=== PATIENT | male | born 1940 | race Caucasian/White ===

== ENCOUNTER 2016-10-01 14:52 | Outpatient (CLI) | payer MEDICARE ==
[2016-10-01 15:35] LABS: Hemoglobin A1c 6.8 % (4.0-6.0)
[2016-10-01 15:40] LABS: ALT (SGPT) 19 U/L (0-55); AST (SGOT) 14 U/L (5-34); Albumin 3.7 g/dL (3.4-4.8); Alkaline Phosphatase 107 U/L (40-150); Anion Gap 14 mmol/L (10-20); BUN (Urea Nitrogen) 15 mg/dL (8.4-25.7); Bilirubin, Total 0.6 mg/dL (0.2-1.2); Calc. Creatinine Clearance 0 mL/min (70-130); Calcium 8.9 mg/dL (7.8-10.44); Carbon Dioxide 23 mmol/L (23-31); Cardiac Risk 3.2 (Less than 4.5); Chloride 104 mmol/L (98-107); Cholesterol 146 mg/dL (< 200 Desired); Estimated GFR-MDRD 65; Globulin 2.5 g/dL (2.4-3.5); Glucose 178 mg/dL (83-110); HDL Cholesterol 46 mg/dL (>60 Neg Risk); LDL Cholesterol, Calculated 72 mg/dL; Potassium 4.2 mmol/L (3.5-5.1); Protein, Total 6.2 g/dL (5.8-8.1); Sodium 137 mmol/L (136-145); Triglycerides 142 mg/dL (Less than 150)
[2016-10-02 17:58] LABS: Microalbumin Urine 10.8 mg/dL (0.5-50.0)
[2016-10-02 18:09] LABS: Creatinine, Urine 135.77 mg/dL (63-166); Microalbumin/Creat Ratio 79.5 mg/g (Less than 30)
[2016-10-02 19:11] LABS: Sex Hormone Binding Globulin 98.2 nmol/L (11-78); Testosterone, Total 430.9 ng/dL (221-716)
[2016-10-02 19:13] LABS: Albumin (w/Testosterone Panel) 3.4 g/dL
== END 2016-10-01 14:53 | disposition home or self-care (01) ==
LOC: MADLAB 14:52
PROVIDERS: ATTEND Internal Medicine
DX: E78.5 Hyperlipidemia, unspecified (principal); E29.1 Testicular hypofunction; N40.1 Benign prostatic hyperplasia with lower urinary tract symptoms; E11.9 Type 2 diabetes mellitus without complications
CPT/HCPCS: 36415; 80053; 80061; 82043; 83036; 84270; 84403; G0103

== ENCOUNTER 2017-02-09 18:14 | Emergency (ER) | payer MEDICARE ==
[~2017-02-09 18:14] MED LIST: Sodium Chloride 0.9% 1,000 ML BAG ONE
[2017-02-09] MEDS ORDERED: Clindamycin/D5W 600 mg/50 ml Premix Bag ONE (19:04)
[2017-02-09] MEDS ORDERED: Ciprofloxacin Lactate/D5W 400 mg/200 ml Premix ONE (19:04)
[2017-02-09 19:36] LABS: #Basophils 0.1 thou/uL (0.0-0.2); #Eosinphils 0.3 thou/uL (0.0-0.7); #Lymphocytes 2.2 thou/uL (1.20-3.40); #Monocytes 0.7 thou/uL (0.11-0.59); #Neutrophils 7.8 thou/uL (1.40-6.50); %Basophils 1.2 % (0.0-1.0); %Eosinophils 3.1 % (0.0-10.0); %Lymphocytes 19.4 % (21.0-51.0); %Monocytes 6.5 % (0.0-10.0); %Neutrophils 69.8 % (42.0-75.0); Hemoglobin 10.7 g/dL (14.0-18.0); Mean Corpuscular HGB CONC 34.7 g/dL (32.0-36.0); Mean Corpuscular Hemoglobin 33.2 pg (27.0-31.0); Mean Corpuscular Volume 95.8 fl (80.0-94.0); Mean Platelet Volume 6.5 fL (7.4-10.4); Platelet Count 248 thou/uL (130-400); RBC Distribution Width 10.8 % (11.5-14.5); Red Blood Cell (RBC) Count 3.22 mill/uL (4.70-6.10); White Blood Cell (WBC) Count 11.2 thou/uL (4.8-10.8)
--- NOTE | 2017-02-09 19:46 | RAD ---
THREE VIEWS LEFT FOOT: Date: 02-09-17 Comparison: None. History: Foot gave out, fall, pain, trauma. FINDINGS: The bones appear demineralized. There is mild degenerative changes at the first metatarsal phalangea l joint. There is no displaced fracture or evidence of dislocation seen. IMPRESSION: No displaced fracture or dislocation noted. POS: [facility]
--- NOTE | 2017-02-09 19:50 | RAD ---
THREE VIEWS LEFT ANKLE: Date: 02-09-17 Comparison: None. History: Fell trying to stand. Leg gave out. FINDINGS: Medial and lateral soft tissue swelling is noted. Talar dome and ankle mortise appear intact. No acu te osseous abnormality. IMPRESSION: Nonspecific soft tissue swelling with no displaced fracture or dislocation. POS: [facility]
[2017-02-09 19:53] LABS: ALT (SGPT) 23 U/L (8-55); AST (SGOT) 24 U/L (5-34); Albumin 3.5 g/dL (3.4-4.8); Alkaline Phosphatase 97 U/L (40-150); Anion Gap 18 mmol/L (10-20); BUN (Urea Nitrogen) 19 mg/dL (8.4-25.7); Bilirubin, Total 0.5 mg/dL (0.2-1.2); Calc. Creatinine Clearance 0 mL/min (70-130); Calcium 8.7 mg/dL (7.8-10.44); Carbon Dioxide 18 mmol/L (23-31); Chloride 104 mmol/L (98-107); Estimated GFR-MDRD 50; Globulin 4.1 g/dL (2.4-3.5); Glucose 136 mg/dL (83-110); Potassium 3.8 mmol/L (3.5-5.1); Protein, Total 7.6 g/dL (5.8-8.1); Sodium 136 mmol/L (136-145)
[2017-02-09] MEDS ORDERED: Triple Antibiotic Oint 1 GM Packet ONE (20:02)
== END 2017-02-09 21:55 | disposition left against medical advice (07) ==
LOC: MADERS 18:14
DX: E11.621 Type 2 diabetes mellitus with foot ulcer (principal); L97.529 Non-pressure chronic ulcer of other part of left foot with unspecified severity; L03.116 Cellulitis of left lower limb; E11.65 Type 2 diabetes mellitus with hyperglycemia; I10 Essential (primary) hypertension; E78.5 Hyperlipidemia, unspecified; F17.210 Nicotine dependence, cigarettes, uncomplicated
CPT/HCPCS: 36415; 36416; 80053; 83036; 83880; 85025; 86140; 87040; 87070; 87077; 87186; 87205; 96361; 96365; 96375; J0744; J3490; J7050

== ENCOUNTER 2017-03-05 09:37 | Outpatient (CLI) | payer MEDICARE ==
[2017-03-05 10:22] LABS: Hemoglobin A1c 8.7 % (4.0-6.0)
[2017-03-05 10:24] LABS: ALT (SGPT) 17 U/L (8-55); AST (SGOT) 12 U/L (5-34); Albumin 3.8 g/dL (3.4-4.8); Alkaline Phosphatase 143 U/L (40-150); Anion Gap 14 mmol/L (10-20); BUN (Urea Nitrogen) 19 mg/dL (8.4-25.7); Bilirubin, Total 0.4 mg/dL (0.2-1.2); Calc. Creatinine Clearance 0 mL/min (70-130); Calcium 9.1 mg/dL (7.8-10.44); Carbon Dioxide 22 mmol/L (23-31); Chloride 100 mmol/L (98-107); Estimated GFR-MDRD 53; Globulin 2.9 g/dL (2.4-3.5); Glucose 280 mg/dL (83-110); Potassium 4.8 mmol/L (3.5-5.1); Protein, Total 6.7 g/dL (5.8-8.1); Sodium 131 mmol/L (136-145)
[2017-03-05 17:39] LABS: Creatinine, Urine 60.15 mg/dL (63-166); Microalbumin Urine 9.7 mg/dL (0.5-50.0); Microalbumin/Creat Ratio 161.3 mg/g (Less than 30)
== END 2017-03-05 09:38 | disposition home or self-care (01) ==
LOC: MADLAB 09:37
PROVIDERS: ATTEND Internal Medicine
DX: E11.621 Type 2 diabetes mellitus with foot ulcer (principal)
CPT/HCPCS: 36415; 80053; 82043; 83036

== ENCOUNTER 2017-07-25 13:10 | Emergency (ER) | payer MEDICARE, OTHER ==
--- NOTE | 2017-07-25 15:31 | RAD ---
3 VIEWS LEFT WRIST: Date: 07/25/17 HISTORY: Trauma and pain. FINDINGS/IMPRESSION: AP, lateral, and oblique views of left wrist obtained. Comparison made to previous exam from 05/09/13 . Images demonstrate a fracture seen in the dorsally placed radiocarpal/metacarpal plate. Again, the fr acture line is seen in the mid portion of the plate. Screws are in good position. The fourth from the distalmost screw appears to have been fractured. First carpometacarpal degenerative changes seen. Ra diographic appearance of the left wrist is stable and not significantly changed since the previous ex am from 05/09/13. No acute left wrist abnormality seen. POS: [facility]
== END 2017-07-25 15:00 | disposition home or self-care (01) ==
LOC: MADERS 13:10
DX: S69.92XA Unspecified injury of left wrist, hand and finger(s), initial encounter (principal); E11.9 Type 2 diabetes mellitus without complications; E78.5 Hyperlipidemia, unspecified; I10 Essential (primary) hypertension; F17.210 Nicotine dependence, cigarettes, uncomplicated; W01.0XXA Fall on same level from slipping, tripping and stumbling without subsequent striking against object, initial encounter

== ENCOUNTER 2018-02-14 22:15 | Emergency (ER) | payer MEDICARE, OTHER ==
[2018-02-14] MEDS ORDERED: Ibuprofen 400 MG TAB ONE (22:47)
--- NOTE | 2018-02-14 23:12 | RAD ---
LEFT WRIST THREE VIEWS: 02/14/2018 HISTORY: Injury. COMPARISON: 07/25/2017 FINDINGS: Three views of the left wrist demonstrate a previous fusion attempt at the left radiocarpal as well a s carpometacarpal joint. The dorsally positioned plate has fractured at the third carpometacarpal eder int. This was seen on the patient's previous comparison radiograph. Chronic changes are seen along much of the third metacarpal. No acute abnormality is seen. IMPRESSION: 1. No significant interval change is seen. 2. No evidence of acute left wrist abnormality is seen. 3. There is failed hardware with plates and screws noted. 4. 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 POS: [facility]
== END 2018-02-14 23:20 | disposition home or self-care (01) ==
LOC: MADERS 22:15
DX: M25.532 Pain in left wrist (principal); E78.5 Hyperlipidemia, unspecified; I10 Essential (primary) hypertension; E11.649 Type 2 diabetes mellitus with hypoglycemia without coma; F17.210 Nicotine dependence, cigarettes, uncomplicated; W19.XXXA Unspecified fall, initial encounter